=== PATIENT | male | born 1990 | race Caucasian/White ===

== ENCOUNTER 2016-12-09 21:01 | Emergency (ER) | payer OTHER ==
--- NOTE | 2016-12-09 21:46 | ED NURSING NOTES ---
Clinical Report - Nurses [facility] [address] [place] [address] 12/09/2016 21:04 Patient: MILAN OLIVIA TRIAGE Triage time 21:13 Dec 09 2016. Acuity: LEVEL 4. Chief Complaint: REDNESS and PAIN TO LEFT EYE. Alert. No acute distress. VISUAL ACUITY: Visual acuity performed: left eye 20/50; right eye 20/30; both eyes 20/25. --21:17 Roselyn Reddy R.N. 21:13 12/09/16. BP: 119/75. HR: 83. RR: 16. O2 saturation: 100%. Temp: 98 F. Pain level now: 5/10. --21:17 Roselyn Reddy R.N. Weight: 61.6 kg stated. Height/Length: 72 inches Per Patient. BMI: 18.4. --21:15 Roselyn Reddy R.N. Medications None. --21:14 Roselyn Reddy R.N. Allergies None. --21:14 Roselyn Reddy R.N. History Arrived by private vehicle. Historian: patient. This started just prior to arrival. He sustained injury. 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 He has had blurred vision. 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 PAST MEDICAL HX: Immunizations: up-to-date. SOCIAL HX: Never smoker. No alcohol use or drug use. No infectious disease exposure. SELF HARM ASSESSMENT: A self harm assessment was performed. The patient answered "no" to the question "Do you have thoughts of harming or killing yourself?". FALL RISK ASSESSMENT: Fall risk assessment completed. No fall risk identified. NUTRITIONAL RISK ASSESSMENT: The nutritional risk assessment revealed no deficiencies. FUNCTIONAL ASSESSMENT: Functional assessment: no impairments noted. LEARNING NEEDS ASSESSMENT: The learning needs assessment revealed no barriers. ABUSE ASSESSMENT: Abuse assessment: The patient was asked "Do you feel safe in your home?". SKIN INTEGRITY ASSESSMENT: Skin integrity risk assessment completed. No skin integrity risk identified. --21:17 Roselyn Reddy R.N. ADDITIONAL SURGERIES: Appendectomy. --21:15 Roselyn Reddy R.N. Interventions ID band on patient. To room. --21:17 Roselyn Reddy R.N. PHYSICAL ASSESSMENT Ambulatory to room. GENERAL / NEURO / PSYCH: Alert. Appears in pain. HEENT: No facial asymmetry noted. Mouth inspection within normal limits. RESPIRATORY: Respirations not labored. SKIN: Skin is warm and dry. --21:18 Roselyn Reddy R.N. NURSING PROGRESS NOTES Head of bed elevated. Patient identifiers checked. Call light placed in reach. Side rails up x 1. Bed placed in lowest position. Brakes of bed on. --21:18 Roselyn Reddy R.N. 21:49 12/09/2016 Motrin PO Tablets 800 mg given. Allergies verified and confirmed 5 rights. --21:49 Roselyn Reddy R.N. 21:49 12/09/2016 Tylenol (Acetaminophen) PO Tablets 650 mg given. Allergies verified and confirmed 5 rights. --21:49 Roselyn Reddy R.N. ( eye patch applied to left eye). --21:57 Roselyn Reddy R.N. DISPOSITION / DISCHARGE 21:49 12/09/16. BP: 128/80. HR: 81. RR: 16. O2 saturation: 98%. Pain level now: 10/28. --21:50 Roselyn Reddy R.N. Departure time: :Dec 09 2016. Condition at departure: improved. The following issues were addressed: pain control. No learning barriers present. Discharge instructions provided and reviewed with the patient. Reviewed medication(s) side effects, precautions, dosing and course information. Prescription(s) given to the patient. Reviewed referral to an medical scheduler. Patient verbalized understanding. Written instructions provided in Italian. The patient was discharged home and accompanied by spouse. He left the Emergency Department ambulatory and via private vehicle. Patient driving. --21:56 Roselyn Reddy R.N. Locked/Released at 12/09/2016 22:11 by Roselyn Reddy R.N.
--- NOTE | 2016-12-09 21:46 | ED NURSING NOTES ---
Clinical Report - Nurses [facility] [address] [place] [address] 12/09/2016 21:04 Patient: MILAN OLIVIA TRIAGE Triage time 21:13 Dec 09 2016. Acuity: LEVEL 4. Chief Complaint: REDNESS and PAIN TO LEFT EYE. Alert. No acute distress. VISUAL ACUITY: Visual acuity performed: left eye 20/50; right eye 20/30; both eyes 20/25. --21:17 Roselyn Reddy R.N. 21:13 12/09/16. BP: 119/75. HR: 83. RR: 16. O2 saturation: 100%. Temp: 98 F. Pain level now: 5/10. --21:17 Roselyn Reddy R.N. Weight: 61.6 kg stated. Height/Length: 72 inches Per Patient. BMI: 18.4. --21:15 Roselyn Reddy R.N. Medications None. --21:14 Roselyn Reddy R.N. Allergies None. --21:14 Roselyn Reddy R.N. History Arrived by private vehicle. Historian: patient. This started just prior to arrival. He sustained injury. 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 He has had blurred vision. 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 PAST MEDICAL HX: Immunizations: up-to-date. SOCIAL HX: Never smoker. No alcohol use or drug use. No infectious disease exposure. SELF HARM ASSESSMENT: A self harm assessment was performed. The patient answered "no" to the question "Do you have thoughts of harming or killing yourself?". FALL RISK ASSESSMENT: Fall risk assessment completed. No fall risk identified. NUTRITIONAL RISK ASSESSMENT: The nutritional risk assessment revealed no deficiencies. FUNCTIONAL ASSESSMENT: Functional assessment: no impairments noted. LEARNING NEEDS ASSESSMENT: The learning needs assessment revealed no barriers. ABUSE ASSESSMENT: Abuse assessment: The patient was asked "Do you feel safe in your home?". SKIN INTEGRITY ASSESSMENT: Skin integrity risk assessment completed. No skin integrity risk identified. --21:17 Roselyn Reddy R.N. ADDITIONAL SURGERIES: Appendectomy. --21:15 Roselyn Reddy R.N. Interventions ID band on patient. To room. --21:17 Roselyn Reddy R.N. PHYSICAL ASSESSMENT Ambulatory to room. GENERAL / NEURO / PSYCH: Alert. Appears in pain. HEENT: No facial asymmetry noted. Mouth inspection within normal limits. RESPIRATORY: Respirations not labored. SKIN: Skin is warm and dry. --21:18 Roselyn Reddy R.N. NURSING PROGRESS NOTES Head of bed elevated. Patient identifiers checked. Call light placed in reach. Side rails up x 1. Bed placed in lowest position. Brakes of bed on. --21:18 Roselyn Reddy R.N. 21:49 12/09/2016 Motrin PO Tablets 800 mg given. Allergies verified and confirmed 5 rights. --21:49 Roselyn Reddy R.N. 21:49 12/09/2016 Tylenol (Acetaminophen) PO Tablets 650 mg given. Allergies verified and confirmed 5 rights. --21:49 Roselyn Reddy R.N. ( eye patch applied to left eye). --21:57 Roselyn Reddy R.N. DISPOSITION / DISCHARGE 21:49 12/09/16. BP: 128/80. HR: 81. RR: 16. O2 saturation: 98%. Pain level now: 10/28. --21:50 Roselyn Reddy R.N. Departure time: :Dec 09 2016. Condition at departure: improved. The following issues were addressed: pain control. No learning barriers present. Discharge instructions provided and reviewed with the patient. Reviewed medication(s) side effects, precautions, dosing and course information. Prescription(s) given to the patient. Reviewed referral to an mannequin molder. Patient verbalized understanding. Written instructions provided in Frisian. The patient was discharged home and accompanied by spouse. He left the Emergency Department ambulatory and via private vehicle. Patient driving. --21:56 Roselyn Reddy R.N. Locked/Released at 12/09/2016 22:11 by Roselyn Reddy R.N.
--- NOTE | 2016-12-09 21:46 | ED ORDER SUMMARY ---
..... Patient: MILAN OLIVIA OrderSheet [facility] VisitID: [id number] [address] [place] [address] 26y, M Registration Date/Time: 12/09/2016 ORDER SHEET Weight: 61.6 kg (stated) Allergies: None GENERAL ORDERS: - (eye patch) (21:43 12/09/2016 EKoroleva P.A.-C) ([facility] 21:44 IJurca ER Tech1) (21:46 KKnebel R.N.) MEDICATION ORDERS: Motrin PO 800 mg (NOW) (:43 12/09/2016 EKoroleva P.A.-C) (21:49 ALICEnebel R.N.) Tylenol PO 650 mg (NOW) (:43 12/09/2016 EKoroleva P.A.-C) (21:49 ALICEnebel R.N.) IV FLUIDS: ORDER SHEET NOTES: [Electronically signed by Roselyn Reddy R.N. (:12/09/2016)] [Electronically signed by Elise Peoples PChinA.-C (22:12/09/2016)] [Electronically locked/signed by Roselyn Reddy R.N. (:12/09/2016)]
--- NOTE | 2016-12-09 21:46 | ED ORDER SUMMARY ---
..... Patient: MILAN OLIVIA OrderSheet [facility] VisitID: [id number] [address] [place] [address] 26y, M Registration Date/Time: 12/09/2016 ORDER SHEET Weight: 61.6 kg (stated) Allergies: None GENERAL ORDERS: - (eye patch) (21:43 12/09/2016 EKoroleva P.A.-C) ([facility] 21:44 IJurca ER Tech1) (21:46 KKnebel R.N.) MEDICATION ORDERS: Motrin PO 800 mg (NOW) (:43 12/09/2016 EKoroleva P.A.-C) (21:49 ALICEnebel R.N.) Tylenol PO 650 mg (NOW) (:43 12/09/2016 EKoroleva P.A.-C) (21:49 ALICEnebel R.N.) IV FLUIDS: ORDER SHEET NOTES: [Electronically signed by Roselyn Reddy R.N. (:12/09/2016)] [Electronically signed by Elise Peoples PChinA.-C (22:12/09/2016)] [Electronically locked/signed by Roselyn Reddy R.N. (:12/09/2016)]
--- NOTE | 2016-12-09 21:46 | ED CLINICAL REPORT ---
Clinical Report - Physicians/Mid Levels [facility] [address] [place] [address] 12/09/2016 21:04 Patient: MILAN OLIVIA Time Seen: 2139. Arrived- By private vehicle. Historian- patient and significant other. HISTORY OF PRESENT ILLNESS Chief Complaint: EYE PAIN and DISCOMFORT. This involves the left eye, is characterized as mild and is still present. The patient sustained injury. 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 No eye redness, eye discharge, eye itching, eyelid swelling or photophobia. Blurred vision. ( Patient prior to arrival sustaining injury to his left thigh. The incident occurred at work, when a box fell onto his eye, he reports closing his eye likely before the injury. Prior to this he did not have any pain in eye. Denies any previous injuries to the eye. Reports pain and blurriness with vision. Denies any difficulty with movement of the eye. Denies any lacerations. Denies taking any medications prior to arrival. Patient denies wearing contact lenses or any corrective lenses. Denies any prior eye surgeries. Denies any prior major eye injuries.). REVIEW OF SYSTEMS All systems otherwise negative, except as recorded above. PAST HISTORY See nurses notes. NONE. No history of prior eye injury or diabetes mellitus. Additional Surgeries: Appendectomy. Medications: None. Allergies: None. SOCIAL HISTORY Never smoker. No alcohol use. ADDITIONAL NOTES The nursing notes have been reviewed. PHYSICAL EXAM Vital Signs: 12/09/2016 21:13 BP: 119/75. HR: 83. RR: 16. O2 saturation: 100%. Temp: 98 F. Pain level now: 5/10. Appearance: Alert. Appears to be in pain. Patient in mild distress. HEENT: Ears normal. Nose normal. Eyes: Eyelids everted for examination. Pupils equal, round and reactive to light. Accommodation normal. Left upper eyelid: No tenderness or swelling. Left pupil. Left pupil irregular. Left pupil not dilated. Left cornea: medium sized abrasion(s) located centrally. No corneal perforation. Left conjunctiva: No laceration. Rt Eye: Right eye exam normal. Lt Eye: Single medium sized superficial circular shaped corneal abrasion located medially. Pupil regular. Pupil not dilated. No injury to the periorbital area, eyelid erythema, conjunctival edema or foreign body or subconjunctival hemorrhage. No stye present. No foreign body under the eyelid. No exudate present. Neck: Neck supple. CVS: Normal heart rate and rhythm. Heart sounds normal. Respiratory: No respiratory distress. Breath sounds normal. Skin: No rash. Neuro: Oriented X 3. Mood/affect normal. PROGRESS AND PROCEDURES Course of Care: Visual acuity performed: left eye 20/50; right eye 20/30; both eyes 20/25. Signs of an abrasion outside the visual field. After proparacaine patient had no pain, indicating very superficial injury as visualized. Full range of motion with no extraocular movement difficulties or pain or signs of entrapment. No osseous tenderness. No otherwise signs of bleeding. no signs of deep penetrating globe trauma. No osseous tenderness. Discussed options of patient, and at this time will not require any CT imaging Marcelo's pain is very minimal with a small superficial anesthetic. Patient understands this plan. To follow up outpatient. No signs of hyphema. No signs of subconj hemorrhage. 12/09/2016 21:49 BP: 128/80. HR: 81. RR: 16. O2 saturation: 98%. Pain level now: 3/10. Patient is stable. Symptoms better. Patient/family counseled. Differential Diagnosis: I considered uveitis, herpes zoster, periorbital cellulitis and cavernous sinus thrombosis as a possible cause of red/painful eye in this patient. This is a partial list of diagnoses considered. Disposition: Discharged. CLINICAL IMPRESSION Medium corneal abrasion to the right eye. Not due to contact lens. INSTRUCTIONS Wear eye patch for two days. Do not work for three days. (take 650 mg of tylenol, and in 3 hours take 600 mg of motrin , then repeat Tylenol after 3 hours of taking the MOTRIN ice packs to the eye (while eyelid closed)). Prescription Medications: Polytrim ophthalmic solution: Instill 1 drop into affected eye every 3 hours while awake (max 6 doses per day) for 1 week. Dispense five (5) mL. No refills. Substitution is permissible. OTC Medications: Take OTC medications according to label instructions. Available over the counter. Acetaminophen (available over the counter): take according to label instructions. Motrin (available over the counter): take according to label instructions. Follow-up with: Suze [place] MD, Ophthalmology, [facility], [address] [place] [address] - [address] [place] [address] Follow up Monday. Call for an appointment. (Electronically signed by Elise Peoples P.A.-C 12/09/2016 22:22)
--- NOTE | 2016-12-09 21:46 | ED CLINICAL REPORT ---
Clinical Report - Physicians/Mid Levels [facility] [address] [place] [address] 12/09/2016 21:04 Patient: MILAN OLIVIA Time Seen: 2139. Arrived- By private vehicle. Historian- patient and significant other. HISTORY OF PRESENT ILLNESS Chief Complaint: EYE PAIN and DISCOMFORT. This involves the left eye, is characterized as mild and is still present. The patient sustained injury. 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 No eye redness, eye discharge, eye itching, eyelid swelling or photophobia. Blurred vision. ( Patient prior to arrival sustaining injury to his left thigh. The incident occurred at work, when a box fell onto his eye, he reports closing his eye likely before the injury. Prior to this he did not have any pain in eye. Denies any previous injuries to the eye. Reports pain and blurriness with vision. Denies any difficulty with movement of the eye. Denies any lacerations. Denies taking any medications prior to arrival. Patient denies wearing contact lenses or any corrective lenses. Denies any prior eye surgeries. Denies any prior major eye injuries.). REVIEW OF SYSTEMS All systems otherwise negative, except as recorded above. PAST HISTORY See nurses notes. NONE. No history of prior eye injury or diabetes mellitus. Additional Surgeries: Appendectomy. Medications: None. Allergies: None. SOCIAL HISTORY Never smoker. No alcohol use. ADDITIONAL NOTES The nursing notes have been reviewed. PHYSICAL EXAM Vital Signs: 12/09/2016 21:13 BP: 119/75. HR: 83. RR: 16. O2 saturation: 100%. Temp: 98 F. Pain level now: 5/10. Appearance: Alert. Appears to be in pain. Patient in mild distress. HEENT: Ears normal. Nose normal. Eyes: Eyelids everted for examination. Pupils equal, round and reactive to light. Accommodation normal. Left upper eyelid: No tenderness or swelling. Left pupil. Left pupil irregular. Left pupil not dilated. Left cornea: medium sized abrasion(s) located centrally. No corneal perforation. Left conjunctiva: No laceration. Rt Eye: Right eye exam normal. Lt Eye: Single medium sized superficial circular shaped corneal abrasion located medially. Pupil regular. Pupil not dilated. No injury to the periorbital area, eyelid erythema, conjunctival edema or foreign body or subconjunctival hemorrhage. No stye present. No foreign body under the eyelid. No exudate present. Neck: Neck supple. CVS: Normal heart rate and rhythm. Heart sounds normal. Respiratory: No respiratory distress. Breath sounds normal. Skin: No rash. Neuro: Oriented X 3. Mood/affect normal. PROGRESS AND PROCEDURES Course of Care: Visual acuity performed: left eye 20/50; right eye 20/30; both eyes 20/25. Signs of an abrasion outside the visual field. After proparacaine patient had no pain, indicating very superficial injury as visualized. Full range of motion with no extraocular movement difficulties or pain or signs of entrapment. No osseous tenderness. No otherwise signs of bleeding. no signs of deep penetrating globe trauma. No osseous tenderness. Discussed options of patient, and at this time will not require any CT imaging Marcelo's pain is very minimal with a small superficial anesthetic. Patient understands this plan. To follow up outpatient. No signs of hyphema. No signs of subconj hemorrhage. 12/09/2016 21:49 BP: 128/80. HR: 81. RR: 16. O2 saturation: 98%. Pain level now: 3/10. Patient is stable. Symptoms better. Patient/family counseled. Differential Diagnosis: I considered uveitis, herpes zoster, periorbital cellulitis and cavernous sinus thrombosis as a possible cause of red/painful eye in this patient. This is a partial list of diagnoses considered. Disposition: Discharged. CLINICAL IMPRESSION Medium corneal abrasion to the right eye. Not due to contact lens. INSTRUCTIONS Wear eye patch for two days. Do not work for three days. (take 650 mg of tylenol, and in 3 hours take 600 mg of motrin , then repeat Tylenol after 3 hours of taking the MOTRIN ice packs to the eye (while eyelid closed)). Prescription Medications: Polytrim ophthalmic solution: Instill 1 drop into affected eye every 3 hours while awake (max 6 doses per day) for 1 week. Dispense five (5) mL. No refills. Substitution is permissible. OTC Medications: Take OTC medications according to label instructions. Available over the counter. Acetaminophen (available over the counter): take according to label instructions. Motrin (available over the counter): take according to label instructions. Follow-up with: Suze [place] MD, Ophthalmology, [facility], [address] [place] [address] - [address] [place] [address] Follow up Monday. Call for an appointment. (Electronically signed by Elise Peoples P.A.-C 12/09/2016 22:22)
--- NOTE | 2016-12-09 22:22 | ED MED RECONCILIATION SUMMARY ---
Patient: MILAN OLIVIA Medication Reconciliation Report [facility] VisitID: [id number] [address] [place] [address] 26y, M Registration Date/Time: 12/09/2016 Weight: 61.6 kg Height/Length: 72 in. BMI: 18.4 ALLERGIES: None The patient's Home Medications are listed below: NONE. The source(s) of the original Home Medication information: Not obtained. The following Medications were given to the patient in the Emergency Department: Motrin [PO] PO 800 mg, administered: 12/09/2016 9:49:00 PM Tylenol [PO] PO 650 mg, administered: 12/09/2016 9:49:00 PM The following Medications were prescribed to the patient: Take OTC medications according to label instructions. Available over the counter. -- Elise Peoples, P.A.-C Acetaminophen (available over the counter): take according to label instructions. -- Elise Peoples, P.A.-C Motrin (available over the counter): take according to label instructions. -- Elise Peoples, P.A.-C Polytrim ophthalmic solution: Instill 1 drop into affected eye every 3 hours while awake (max 6 doses per day) for 1 week. Dispense five (5) mL. No refills. Substitution is permissible. -- Elise Peoples, P.A.-C
--- NOTE | 2016-12-09 22:22 | ED MAR SUMMARY ---
..... Medication Administration Record [facility] [address] [place] [address] Patient: MILAN OLIVIA Visit ID: [id number] 26y, M Weight: 61.6 kg Height/Length: 72 in BMI: 18.4 ALLERGIES: None Given 21:49 12/09/2016 Roselyn Reddy, RChinNChin Medication Administered: MOTRIN [PO], Dose: 800 mg Tablets PO. Medication Ordered: Motrin PO 800 mg (NOW). Given 21:49 12/09/2016 Roselyn Reddy, R.N. Medication Administered: TYLENOL [PO] (ACETAMINOPHEN), Dose: 650 mg Tablets PO. Medication Ordered: Tylenol PO 650 mg (NOW).
--- NOTE | 2016-12-09 22:22 | ED MAR SUMMARY ---
..... Medication Administration Record [facility] [address] [place] [address] Patient: MILAN OLIVIA Visit ID: [id number] 26y, M Weight: 61.6 kg Height/Length: 72 in BMI: 18.4 ALLERGIES: None Given 21:49 12/09/2016 Roselyn Reddy, RChinNChin Medication Administered: MOTRIN [PO], Dose: 800 mg Tablets PO. Medication Ordered: Motrin PO 800 mg (NOW). Given 21:49 12/09/2016 Roselyn Reddy, R.N. Medication Administered: TYLENOL [PO] (ACETAMINOPHEN), Dose: 650 mg Tablets PO. Medication Ordered: Tylenol PO 650 mg (NOW).
--- NOTE | 2016-12-09 22:22 | ED DISCHARGE INSTRUCTIONS ---
Patient: MILAN OLIVIA General Instructions [facility] VisitID: [id number] [place] [address] 26y, M Registration Date/Time: 12/09/2016 Medium corneal abrasion to the right eye. Not due to contact lens. INSTRUCTIONS Wear eye patch for two days. Do not work for three days. (take 650 mg of tylenol, and in 3 hours take 600 mg of motrin , then repeat Tylenol after 3 hours of taking the MOTRIN ice packs to the eye (while eyelid closed)). Prescription Medications: Polytrim ophthalmic solution: Instill 1 drop into affected eye every 3 hours while awake (max 6 doses per day) for 1 week. Dispense five (5) mL. No refills. Substitution is permissible. OTC Medications: Take OTC medications according to label instructions. Available over the counter. Acetaminophen (available over the counter): take according to label instructions. Motrin (available over the counter): take according to label instructions. Follow-up with: Suze Stafford MD, Ophthalmology, [facility], [address] [place] [address] - [address], [place] [address] Follow up Monday. Call for an appointment. ADDITIONAL INFORMATION Corneal Abrasion The cornea is the clear part in the front of the eye. This sensitive area is very painful when injured. There may be tearing and your vision may be blurry until healing occurs. You may be sensitive to light. This part of the body heals quickly. You can expect the pain to go away within 24-48 hours. If the abrasion is large or deep, your doctor may apply an eye patch, although this is not always done. An antibiotic ointment or eye drops may also be used to prevent infection. Numbing drops may be used to relieve the pain temporarily so that your eyes can be examined. However, these drops cannot be prescribed for home use because that would slow down the healing process. Also, if you cant feel your eye, there is a chance of accidentally injuring your eye further without knowing it. Home Care: A cold pack (ice in a plastic bag, wrapped in a towel) may be applied over the eye (or eyepatch) for 20 minutes at a time, to reduce pain. You may use acetaminophen (Tylenol) or ibuprofen (Motrin, Advil) to control pain, unless another pain medicine was prescribed. [NOTE: If you have chronic liver or kidney disease or ever had a stomach ulcer or GI bleeding, talk with your doctor before using these medicines.] Rest your eyes and do not read until symptoms are gone. If you use contact lenses, do not wear them until all symptoms are gone. If your vision is affected by the corneal abrasion or if an eyepatch was applied, DO NOT DRIVE a motor vehicle or operate machinery until all symptoms are gone. Otherwise, you would have trouble judging distances with only one eye. If your eyes are sensitive to light, try wearing sunglasses, or stay indoors, until symptoms go away. Follow Up as advised by our staff. Serious abrasions may be referred to an auto wheel alignment specialist (lumite injector). If no patch was used but the pain continues for more than 48 hours, you should have another exam. Return to this facility or contact the referral doctor to arrange this. If your eye was patched and if you were asked to remove the patch yourself, see your doctor or return to this facility if your pain is still present after the patch is removed. If you were given a return appointment for patch removal and re-exam, do not miss this. It could be harmful if the patch remains in place longer than advised. Get Prompt Medical Attention if any of the following occur: Increasing eye pain or pain that does not improve after 24 hours Discharge from the eye Increasing redness of the eye or swelling of the eyelids Your vision gets worse Eye Patch An eye patch is used when there has been an injury to the eye. It provides protection from further injury and also keeps the eyelid closed which promotes healing after a corneal injury. There are different types of patches. One type is stiff and held on with an elastic band. The other kind is made of gauze and is taped in place. Home Care: If you are having pain, you may place an ice pack directly over the eye patch. If you were told to remove the patch to put medicine in your eye, before you reapply the patch be sure your eyelid is closed. Do not patch your eye in the openposition. Otherwise, the patch will press against and injure the exposed cornea (clear, front part of the eye). If you were given a return appointment for patch removal and re-exam, do not miss it. An eye patch should not be left in place for more than 48 hours, unless advised to do so by your doctor. DO NOT DRIVE a motor vehicle or operate machinery with the patch in place since you will have difficulty in judging distances with only one eye. You have been given the following additional information: Corneal Abrasion Eye Patch Do not work for three days. (Electronically signed by Elise Peoples P.A.-C 12/09/2016 22:22)
--- NOTE | 2016-12-09 22:22 | ED MED RECONCILIATION SUMMARY ---
Patient: MILAN OLIVIA Medication Reconciliation Report [facility] VisitID: [id number] [address] [place] [address] 26y, M Registration Date/Time: 12/09/2016 Weight: 61.6 kg Height/Length: 72 in. BMI: 18.4 ALLERGIES: None The patient's Home Medications are listed below: NONE. The source(s) of the original Home Medication information: Not obtained. The following Medications were given to the patient in the Emergency Department: Motrin [PO] PO 800 mg, administered: 12/09/2016 9:49:00 PM Tylenol [PO] PO 650 mg, administered: 12/09/2016 9:49:00 PM The following Medications were prescribed to the patient: Take OTC medications according to label instructions. Available over the counter. -- Elise Peoples, P.A.-C Acetaminophen (available over the counter): take according to label instructions. -- Elise Peoples, P.A.-C Motrin (available over the counter): take according to label instructions. -- Elise Peoples, P.A.-C Polytrim ophthalmic solution: Instill 1 drop into affected eye every 3 hours while awake (max 6 doses per day) for 1 week. Dispense five (5) mL. No refills. Substitution is permissible. -- Elise Pepoles, P.A.-C
--- NOTE | 2016-12-09 22:22 | ED DISCHARGE INSTRUCTIONS ---
Patient: MILAN OLIVIA General Instructions [facility] VisitID: [id number] [place] [address] 26y, M Registration Date/Time: 12/09/2016 Medium corneal abrasion to the right eye. Not due to contact lens. INSTRUCTIONS Wear eye patch for two days. Do not work for three days. (take 650 mg of tylenol, and in 3 hours take 600 mg of motrin , then repeat Tylenol after 3 hours of taking the MOTRIN ice packs to the eye (while eyelid closed)). Prescription Medications: Polytrim ophthalmic solution: Instill 1 drop into affected eye every 3 hours while awake (max 6 doses per day) for 1 week. Dispense five (5) mL. No refills. Substitution is permissible. OTC Medications: Take OTC medications according to label instructions. Available over the counter. Acetaminophen (available over the counter): take according to label instructions. Motrin (available over the counter): take according to label instructions. Follow-up with: Suze Stafford MD, Ophthalmology, [facility], [address] [place] [address] - [address], [place] [address] Follow up Monday. Call for an appointment. ADDITIONAL INFORMATION Corneal Abrasion The cornea is the clear part in the front of the eye. This sensitive area is very painful when injured. There may be tearing and your vision may be blurry until healing occurs. You may be sensitive to light. This part of the body heals quickly. You can expect the pain to go away within 24-48 hours. If the abrasion is large or deep, your doctor may apply an eye patch, although this is not always done. An antibiotic ointment or eye drops may also be used to prevent infection. Numbing drops may be used to relieve the pain temporarily so that your eyes can be examined. However, these drops cannot be prescribed for home use because that would slow down the healing process. Also, if you cant feel your eye, there is a chance of accidentally injuring your eye further without knowing it. Home Care: A cold pack (ice in a plastic bag, wrapped in a towel) may be applied over the eye (or eyepatch) for 20 minutes at a time, to reduce pain. You may use acetaminophen (Tylenol) or ibuprofen (Motrin, Advil) to control pain, unless another pain medicine was prescribed. [NOTE: If you have chronic liver or kidney disease or ever had a stomach ulcer or GI bleeding, talk with your doctor before using these medicines.] Rest your eyes and do not read until symptoms are gone. If you use contact lenses, do not wear them until all symptoms are gone. If your vision is affected by the corneal abrasion or if an eyepatch was applied, DO NOT DRIVE a motor vehicle or operate machinery until all symptoms are gone. Otherwise, you would have trouble judging distances with only one eye. If your eyes are sensitive to light, try wearing sunglasses, or stay indoors, until symptoms go away. Follow Up as advised by our staff. Serious abrasions may be referred to an hook and eye attacher (driver's license examiner). If no patch was used but the pain continues for more than 48 hours, you should have another exam. Return to this facility or contact the referral doctor to arrange this. If your eye was patched and if you were asked to remove the patch yourself, see your doctor or return to this facility if your pain is still present after the patch is removed. If you were given a return appointment for patch removal and re-exam, do not miss this. It could be harmful if the patch remains in place longer than advised. Get Prompt Medical Attention if any of the following occur: Increasing eye pain or pain that does not improve after 24 hours Discharge from the eye Increasing redness of the eye or swelling of the eyelids Your vision gets worse Eye Patch An eye patch is used when there has been an injury to the eye. It provides protection from further injury and also keeps the eyelid closed which promotes healing after a corneal injury. There are different types of patches. One type is stiff and held on with an elastic band. The other kind is made of gauze and is taped in place. Home Care: If you are having pain, you may place an ice pack directly over the eye patch. If you were told to remove the patch to put medicine in your eye, before you reapply the patch be sure your eyelid is closed. Do not patch your eye in the openposition. Otherwise, the patch will press against and injure the exposed cornea (clear, front part of the eye). If you were given a return appointment for patch removal and re-exam, do not miss it. An eye patch should not be left in place for more than 48 hours, unless advised to do so by your doctor. DO NOT DRIVE a motor vehicle or operate machinery with the patch in place since you will have difficulty in judging distances with only one eye. You have been given the following additional information: Corneal Abrasion Eye Patch Do not work for three days. (Electronically signed by Elise Peoples P.A.-C 12/09/2016 22:22)
== END 2016-12-09 21:55 | disposition home or self-care (01) ==
LOC: ED SRH 21:01
DX: S05.02XA Injury of conjunctiva and corneal abrasion without foreign body, left eye, initial encounter (principal); W20.8XXA Other cause of strike by thrown, projected or falling object, initial encounter; Y93.89 Activity, other specified; Y99.0 Civilian activity done for income or pay; Y92.89 Other specified places as the place of occurrence of the external cause